=== PATIENT | female | born 1985 | race Caucasian/White ===

== ENCOUNTER 2019-05-18 00:50 | Emergency (ER) | payer BC, OTHER ==
[2019-05-18 01:12] VITALS: BP 149/85; PULSE 90; TEMP 98.2; BMI 39.3
--- NOTE | 2019-05-18 03:17 | PDOC ---
Attending Attestation - Resident Resident Name: Will Ibarra - ED Attending Attestation I have performed the following: I have examined & evaluated the patient, The case was reviewed & discussed with the resident, I agree w/resident's findings & plan - HPI HPI: 05/21/19 20:09 see resident hpi - Physicial Exam PE: 05/21/19 20:09 agree with resident exam - Medical Decision Making 05/21/19 20:09 33-year-old female with sudden onset of left flank pain after coughing Exam consistent with left lower rib fracture Will DC with analgesics
[2019-05-18] MEDS ORDERED: morphine CARPU-JECT 2 MG/1 ML DISP.SYRIN IM ONE (03:55)
[2019-05-18] MEDS ORDERED: MORPHINE SULFATE 2 MG/ML VIAL ONE (04:13)
[2019-05-18] MEDS ORDERED: LIDOCAINE 5% TOPICAL PATCH TP ONE (04:22)
--- NOTE | 2019-05-18 04:28 | PDOC ---
History of Present Illness - General Chief Complaint: Back Pain Stated Complaint: ABD PAIN Time Seen by Provider: 05/18/19 02:50 History Source: Patient - History of Present Illness Initial Comments: 05/18/19 04:22 33F with sudden left flank pain felt during a bout of violent coughing today. The smallest movement hurts her. Coughing makes it worst. No dysuria or chest pain. Past History - Past Medical History Allergies/Adverse Reactions: Allergies Allergy/AdvReac Type Severity Reaction Status Date / Time No Known Allergies Allergy Verified 05/18/19 01:05 Home Medications: Ambulatory Orders Vitamins ([facility]) - 1 tab PO DAILY #0 tablet 10/06/14 Lidocaine 5% Patch [Lidoderm Patch -] 1 patch TP DAILY #30 patch 05/18/19 Asthma: No Cancer: No Cardiac Disorders: No Diabetes: No HTN: No Seizures: No Thyroid Disease: No - Psycho Social/Smoking Cessation Hx Smoking History: Never smoked Have you smoked in the past 12 months: No Hx Alcohol Use: No Drug/Substance Use Hx: No Hx Substance Use Treatment: No Review of Systems - Review of Systems Able to Perform ROS?: Yes Is the patient limited Green[place]ic proficient: No Constitutional: No: Symptoms Reported HEENTM: No: Symptoms Reported Respiratory: No: Symptoms reported Cardiac (ROS): No: Symptoms Reported ABD/GI: No: Symptoms Reported : No: Symptoms Reported Musculoskeletal: Yes: See HPI Integumentary: No: Symptoms Reported Neurological: No: Symptoms reported All Other Systems: Reviewed and Negative *Physical Exam - Vital Signs Last Vital Signs Temp Pulse Resp BP Pulse Ox 98.2 F 90 18 149/85 95 05/18/19 01:01 05/18/19 01:01 05/18/19 01:01 05/18/19 01:01 05/18/19 01:01 - Physical Exam General Appearance: Yes: Nourished, Appropriately Dressed. No: Apparent Distress HEENT: positive: EOMI, SHAUN, Normal ENT Inspection Respiratory/Chest: positive: Lungs Clear, Normal Breath Sounds. negative: Chest Tender, Respiratory Distress Gastrointestinal/Abdominal: positive: Normal Bowel Sounds Musculoskeletal: positive: Other (tender along 12th rib acutely. ) ED Treatment Course - RADIOLOGY Radiology Studies Ordered: Category Date Time Status CHEST - PA [RAD] Stat Radiology 05/18/19 03:34 Taken RIBS-LEFT SIDE [RAD] Stat Radiology 05/18/19 03:33 Ordered - Medications Given in the ED: ED Medications Discontinued Medications Generic Name Dose Route Start Last Admin Trade Name Mercedes PRN Reason Stop Dose Admin Morphine Sulfate 2 mg 05/18/19 03:55 05/18/19 04:15 Morphine Injection - IM 05/18/19 03:56 2 mg ONCE ONE Administration Medical Decision Making - Medical Decision Making 05/18/19 04:36 xray positive for LEFT 12th rib fracture Sending home with lidoderm patch. Patient agreeable. Discharge - Discharge Information Problems reviewed: Yes Clinical Impression/Diagnosis: Left rib fracture Condition: Improved Disposition: HOME - Admission No - Additional Discharge Information Prescriptions: Lidocaine 5% Patch [Lidoderm Patch -] 1 patch TP DAILY #30 patch - Follow up/Referral Referrals: Agustina Cuba MD [Primary Care Provider] - - Patient Discharge Instructions Patient Printed Discharge Instructions: DI for Rib Fracture Additional Instructions: Follow up with your primary care physician within the next 3-4 days. Come back to the emergency department for any new, worsening or concerning symptoms. Place one lidoderm patch a day as needed for pain. - Post Discharge Activity
[2019-05-18] MEDS ORDERED: LIDOCAINE 5% TOPICAL PATCH ONE (04:30)
== END 2019-05-18 04:52 | disposition home or self-care (01) ==
LOC: JER 00:50
DX: S22.32XA Fracture of one rib, left side, initial encounter for closed fracture (principal); X58.XXXA Exposure to other specified factors, initial encounter; Y93.9 Activity, unspecified; Y92.038 Other place in apartment as the place of occurrence of the external cause; Y99.8 Other external cause status
CPT/HCPCS: 71045-TC-FY; 71101-TC-LT-FY; 99281-25